=== PATIENT | female | born 1950 | race Caucasian/White ===

== ENCOUNTER → 2017-09-27 | Outpatient (CLI) | payer MEDICARE ==
--- NOTE | 2017-09-28 04:12 | MRI ---
EXAM DATE: 09/27/2017 10:07 AM [facility]. PROCEDURE: MR CERVICAL SPINE WITHOUT IV CONTRAST. INDICATION: CERVICALGIA. COMPARISON: None. TECHNIQUE: Multiplanar T1 and T2 MRI images of the cervical spine were acquired without administration of intravenous contrast. FINDINGS: The cervical vertebral bodies demonstrate normal height and alignment. There is moderate intervertebral disc space height loss at C5-C6. Lesser disc space height loss in the remainder of the cervical spine. Normal marrow signal. No cord signal abnormality. C2-C3: No significant disc bulge. No spinal canal or neural foraminal narrowing. C3-C4: No significant disc bulge. No spinal canal or neural foraminal narrowing. Mild facet arthropathy. C4-C5: No significant disc bulge. No spinal canal or neural foraminal narrowing. Mild facet arthropathy. C5-C6: A posterior disc osteophyte complex and ligamentous hypertrophy contributes to moderate spinal canal stenosis at this level. Uncovertebral spurring and facet arthropathy results in severe right and moderate left foraminal stenoses. C6-C7: A disc bulge with osteophytic spurring and ligamentous hypertrophy results in severe spinal canal stenosis. Uncovertebral spurring and facet arthropathy contributes to severe right and moderate left foraminal stenoses. C7-T1: No significant disc bulge. No spinal canal or neural foraminal narrowing. The soft tissues of the neck are unremarkable. IMPRESSION: Moderate multilevel degenerative changes of the cervical spine results in: -Severe spinal canal stenosis C6-C7 and moderate spinal canal stenosis C5-C6. -Severe right stenosis C5-C6 and C6-C7. No cord signal abnormality. Electronically signed by: Erick Rodriguez MD 09/28/2017 4:11 AM [facility]
== END | disposition home or self-care (01) ==
LOC: MRI 10:00
PROVIDERS: ATTEND Family Medicine
DX: M50.10 Cervical disc disorder with radiculopathy, unspecified cervical region (principal)

== ENCOUNTER → 2017-10-28 | Outpatient (CLI) | payer MEDICARE | END | disposition home or self-care (01) | LOC: LAB.O 15:03 | PROVIDERS: ATTEND Psychiatry & Neurology Neurology | DX: H46.9 Unspecified optic neuritis (principal); M81.8 Other osteoporosis without current pathological fracture; M35.3 Polymyalgia rheumatica; M33.22 Polymyositis with myopathy; G61.81 Chronic inflammatory demyelinating polyneuritis; L40.59 Other psoriatic arthropathy; M54.12 Radiculopathy, cervical region; M54.16 Radiculopathy, lumbar region; I73.00 Raynaud's syndrome without gangrene; G25.89 Other specified extrapyramidal and movement disorders; M06.9 Rheumatoid arthritis, unspecified; D86.9 Sarcoidosis, unspecified; M35.00 Sjogren syndrome, unspecified; G47.30 Sleep apnea, unspecified; G47.9 Sleep disorder, unspecified; M32.10 Systemic lupus erythematosus, organ or system involvement unspecified; M31.6 Other giant cell arteritis; I77.9 Disorder of arteries and arterioles, unspecified; H81.49 Vertigo of central origin, unspecified ear; E53.8 Deficiency of other specified B group vitamins; E55.9 Vitamin D deficiency, unspecified; E11.9 Type 2 diabetes mellitus without complications; M45.0 Ankylosing spondylitis of multiple sites in spine ==

== ENCOUNTER → 2018-05-11 | Outpatient (CLI) | payer MEDICARE | LOC: GMAJ 10:43 | PROVIDERS: ATTEND Family Medicine | DX: E03.9 Hypothyroidism, unspecified (principal) ==

== ENCOUNTER → 2019-06-01 | Outpatient (CLI) | payer MEDICARE | LOC: GMAJ 11:04 | PROVIDERS: ATTEND Family Medicine | DX: E03.9 Hypothyroidism, unspecified (principal); Z79.899 Other long term (current) drug therapy ==

== ENCOUNTER → 2019-12-28 | Outpatient (CLI) | payer MEDICARE ==
--- NOTE | 2019-12-29 15:37 | MRI ---
EXAM DESCRIPTION: Lumbar Spine w/o Contrast : Magnetic Resonance Imaging. CLINICAL HISTORY: RIGHT SCIATICA COMPARISON: None. TECHNIQUE: Multiplanar, multiple standard sequences, non contrast MRI, lumbar spine. FINDINGS: L5-S1: The disc is well visualized on axial T2 series 501, image 3. Disc desiccation and minimal disc space loss posterior. 3 mm retrolisthesis. Posterior disc bulge. Disc is effacing the left subarticular recess. Hypertrophy of the bilateral facet joints and posterior flavum ligaments (canal elements) with AP canal diameter 8 mm. Bilateral foraminal stenosis more on the left than right. L4-L5: Disc desiccation posterior disc space loss. Minimal posterior bulging. Moderate degenerative hypertrophy of the canal elements. Impressing on the posterior lateral thecal sac. AP canal diameter 8 mm. Moderate to severe right foraminal narrowing or stenosis with moderate left foraminal narrowing. L3-L4: Disc desiccation and minimal posterior disc space loss. Tiny anterior and posterior bulge. 2 mm retrolisthesis. Hypertrophic canal elements AP canal diameter 11 mm. Moderate to severe bilateral foraminal narrowing. L2-L3: Disc desiccation minimal anterior bulge and endplate ridging. Minimal disc space loss. 3 mm retrolisthesis. Disc bulge more to the left of midline with bilateral subarticular recess stenosis more on the left. Mild degenerative hypertrophy of the canal ligaments. AP canal diameter 8.5 mm. Bilateral moderate foraminal narrowing. Decreased height of the L2 vertebral body anteriorly mid body height 16 mm compared to 22 mm at L1. Cleft in the anterior cortex of the vertebral body but no marrow edema. Question of 3 mm retropulsion of the inferior endplate versus retrolisthesis. L1-L2: Disc desiccation anterior bulging and endplate ridging. Posterior broad-based bulge with endplate also bulging. Hypertrophic degenerative changes in the canal elements. AP canal diameter 12 mm. Mild to moderate bilateral foraminal narrowing. T12-L1: Disc desiccation minimal anterior bulging. Concavity Schmorl's node in the superior L1 endplate possibly from prior trauma. No abnormal marrow edema. Posterior disc bulging. Canal elements unremarkable. Canal and bilateral foramina are patent. Conus terminates at L1. Minimal curvature of the spine with kyphosis upper segments. Circumscribed hyperintense T1 and T2 hemangioma L1 vertebral body. Anterior rotation of the right renal hilum. Paravertebral soft tissues unremarkable.. Distal cord normal signal and caliber. Otherwise inhomogeneous marrow signal in the remaining vertebral bodies and the posterior elements. Vertebral bodies are not compressed at any level. IMPRESSION: 1. Multiple levels of dislocated discs, degenerated posterior flavum ligaments and hypertrophic facet joints, foraminal narrowing and endplate spondylosis. Old compression injuries at L2 and L1. 2. Mild to moderate central canal stenosis is multifactorial at L5-S1. Bilateral foraminal stenosis also visualized along with effacement of the left subarticular recess. Correlate for bilateral L5 and S1 radiculopathy. 3. Mild to moderate multifactorial central canal stenosis L4-L5. Severe narrowing or stenosis right foramen. Correlate for right L4 radiculopathy. 4. Multifactorial bilateral severe foraminal narrowing at L3-4. Correlate for bilateral L3 radiculopathy. L2-L3 retrolisthesis or old retropulsion from L2 vertebral body compression fracture. Bilateral subarticular recess stenosis. Correlate for bilateral L3 radiculopathy. Mild to moderate central canal stenosis is multifactorial. Electronically signed by: Holger Cobb MD 12/29/2019 3:36 PM [facility]
== END ==
LOC: MRI 13:56
PROVIDERS: ATTEND General Practice
DX: M47.896 Other spondylosis, lumbar region (principal); M51.36 Other intervertebral disc degeneration, lumbar region; S32.010S Wedge compression fracture of first lumbar vertebra, sequela; S32.020S Wedge compression fracture of second lumbar vertebra, sequela; M48.061 Spinal stenosis, lumbar region without neurogenic claudication; M51.86 Other intervertebral disc disorders, lumbar region; M53.86 Other specified dorsopathies, lumbar region; M24.28 Disorder of ligament, vertebrae; M48.07 Spinal stenosis, lumbosacral region; M54.31 Sciatica, right side

== ENCOUNTER → 2020-04-25 | Outpatient (CLI) | payer MEDICARE | LOC: GMAJ 10:55 | PROVIDERS: ATTEND Family Medicine | DX: E03.9 Hypothyroidism, unspecified (principal); Z79.899 Other long term (current) drug therapy ==